=== PATIENT | female | born 1995 | race Caucasian/White ===

== ENCOUNTER 2018-03-21 15:56 | Emergency (ER) | payer SELFPAY ==
[~2018-03-21 15:56] MED LIST: ACEC5L PO; NO RTN MEDS
[2018-03-21] MEDS ORDERED: NS(*) 0.9% 1000 ML BAG 1,000 ML IV ONE (16:14)
--- NOTE | 2018-03-21 16:14 | ER Report ---
History and Physical Time Seen By MD: 16:14 Hx. of Stated Complaint: STOMACH PAIN FOR 4 WEEKS, NOW HAS SOUR BURPS AND NAUSEA. THINKS ITS HER GALL BLADDER HPI/ROS CHIEF COMPLAINT: Abdominal pain HISTORY OF PRESENT ILLNESS: 22-year-old female patient presents to emergency room with complaint of abdominal pain. Patient states that this been going on for the past 4 weeks. She states that she is notanything that seems to make it worse. She did eat some meats this afternoon which seemed to make the pain worse. She states pain seems to be more on the right side and radiates around to the middle of the stomach. She denies any fevers or chills. She denies any nausea, vomiting or diarrhea. Patient states she did take some ibuprofen for today which did not seem to help. She states she is not noticing anything that seems to make the pain better. She is concerned that her gallbladder may be the source of the pain as her mother had her gallbladder removed. REVIEW OF SYSTEMS: Respiratory: No cough, no dyspnea. Cardiovascular: No chest pain, no palpitations. Gastrointestinal: As noted above Musculoskeletal: No back pain. Allergies: Coded Allergies: No Known Drug Allergies (Unverified , 03/21/18) Home Meds Active Scripts Omeprazole (OMEPRAZOLE) 40 Mg Capsule., 40 MG PO QDAY, #30 CAP Prov:LETTY MONREAL 03/21/18 Past Medical/Surgical History Patient denies any pertinent past medical history. Patient has surgical history of ear surgery. Reviewed Nurses Notes: Yes Hx Smoking: No Smoking Status: Never Smoker Constitutional Vital Sign - Last 24 Hours 03/21/18 03/21/18 03/21/18 03/21/18 15:56 16:06 16:08 16:11 Temp 98.6 Pulse ??? 75 80 Resp 12 B/P (MAP) 123/67 123/67 (85) Pulse Ox 95 98 O2 Delivery Room Air 03/21/18 03/21/18 03/21/18 03/21/18 16:26 16:30 16:41 16:56 Pulse ??? 60 ??? B/P (MAP) 115/68 (84) Pulse Ox 99 03/21/18 03/21/18 03/21/18 03/21/18 17:00 17:11 17:26 17:30 Pulse 130 ??? B/P (MAP) 99/54 (69) 97/73 (81) Pulse Ox 99 03/21/18 03/21/18 03/21/18 17:41 17:57 18:01 Pulse ? B/P (MAP) 118/70 (86) Physical Exam General Appearance: The patient is alert, has no immediate need for airway protection and no current signs of toxicity. Respiratory: Chest is non tender, lungs are clear to auscultation. Cardiac: regular rate and rhythm Gastrointestinal: Abdomen is soft and tender in the right upper quadrant, no ma sses, bowel sounds normal. Musculoskeletal: Neck: Neck is supple and non tender. Extremities have full range of motion and are non tender. Skin: No rashes or lesions. DIFFERENTIAL DIAGNOSIS: After history and physical exam differential diagnosis was considered for abdominal pain including but not limited to appendicitis, cholecystitis, gastritis and urinary tract infection. Medical Decision Making Data Points Result Diagram: 03/21/18 1625 03/21/18 1625 Laboratory Hematology Test 03/21/18 16:01 03/21/18 16:25 Urine Color Annia Urine Clarity Clear Urine pH 5.0 pH (4.8-9.5) Urine Specific [place] 1.028 Urine Protein Negative mg/dL (NEGATIVE) Urine Glucose (UA) Negative mg/dL (NEGATIVE) Urine Ketones 20 mg/dL (NEGATIVE) Urine Blood Moderate (NEGATIVE) Urine Nitrite Negative (NEGATIVE) Urine Bilirubin Negative (NEGATIVE) Urine Urobilinogen 2.0 mg/dL (0.2-1.9) Urine Leukocyte Esterase Negative (NEGATIVE) Urine RBC 2 /HPF (0-2/HPF) Urine WBC 1 /HPF (0-5/HPF) Urine Squamous Epithelial Cells None /LPF (</=FEW) Urine Amorphous Crystals Few /HPF Urine Bacteria Negative /HPF (NONE-FEW) Urine Mucus Few /HPF (NONE-FEW) Red Blood Count 4.86 M/uL (4.17-5.56) Mean Corpuscular Volume 86.4 fL (80.0-96.0) Mean Corpuscular Hemoglobin 29.0 pg (26.0-33.0) Mean Corpuscular Hemoglobin Concent 33.5 g/dL (32.0-36.0) Red Cell Distribution Width 14.4 % (11.5-14.5) Mean Platelet Volume 8.0 fL (7.2-11.1) Neutrophils (%) (Auto) 68.8 % (39.4-72.5) Lymphocytes (%) (Auto) 21.3 % (17.6-49.6) Monocytes (%) (Auto) 7.4 % (4.1-12.4) Eosinophils (%) (Auto) 2.1 % (0.4-6.7) Basophils (%) (Auto) 0.4 % (0.3-1.4) Nucleated RBC Relative Count (auto) 0.0 /100WBC Neutrophils # (Auto) 8.0 K/uL (2.0-7.4) Lymphocytes # (Auto) 2.5 K/uL (1.3-3.6) Monocytes # (Auto) 0.9 K/uL (0.3-1.0) Eosinophils # (Auto) 0.2 K/uL (0.0-0.5) Basophils # (Auto) 0.0 K/uL (0.0-0.1) Nucleated RBC Absolute Count (auto) 0.00 K/uL Sodium Level 140 mmol/L (137-145) Potassium Level 3.6 mmol/L (3.5-5.0) Chloride Level 104 mmol/L (98-107) Carbon Dioxide Level 26 mmol/L (22-31) Blood Urea Nitrogen 9 mg/dl (7-18) Creatinine 0.70 mg/dl (0.52-1.04) Glomerular Filtration Rate Calc > 60.0 Random Glucose 77 mg/dl (75-110) Calcium Level 9.0 mg/dl (8.4-10.2) Total Bilirubin 0.5 mg/dl (0.2-1.3) Aspartate Amino Transf (AST/SGOT) 25 U/L (0-35) Alanine Aminotransferase (ALT/SGPT) 26 U/L (0-56) Alkaline Phosphatase 76 U/L (0-126) C-Reactive Protein < 0.5 mg/dl (<1.0) Total Protein 7.2 g/dl (6.3-8.2) Albumin 4.0 g/dl (3.5-5.0) Amylase Level 87 U/L (0-110) Lipase 61 U/L (23-300) Human Chorionic Gonadotropin, Qual Negative (NEGATIVE) Chemistry Test 03/21/18 16:01 03/21/18 16:25 Urine Color Annia Urine Clarity Clear Urine pH 5.0 pH (4.8-9.5) Urine Specific [place]man 1.028 Urine Protein Negative mg/dL (NEGATIVE) Urine Glucose (UA) Negative mg/dL (NEGATIVE) Urine Ketones 20 mg/dL (NEGATIVE) Urine Blood Moderate (NEGATIVE) Urine Nitrite Negative (NEGATIVE) Urine Bilirubin Negative (NEGATIVE) Urine Urobilinogen 2.0 mg/dL (0.2-1.9) Urine Leukocyte Esterase Negative (NEGATIVE) Urine RBC 2 /HPF (0-2/HPF) Urine WBC 1 /HPF (0-5/HPF) Urine Squamous Epithelial Cells None /LPF (</=FEW) Urine Amorphous Crystals Few /HPF Urine Bacteria Negative /HPF (NONE-FEW) Urine Mucus Few /HPF (NONE-FEW) White Blood Count 11.6 k/uL (4.5-11.0) Red Blood Count 4.86 M/uL (4.17-5.56) Hemoglobin 14.1 g/dL (12.0-16.0) Hematocrit 42.0 % (34.0-47.0) Mean Corpuscular Volume 86.4 fL (80.0-96.0) Mean Corpuscular Hemoglobin 29.0 pg (26.0-33.0) Mean Corpuscular Hemoglobin Concent 33.5 g/dL (32.0-36.0) Red Cell Distribution Width 14.4 % (11.5-14.5) Platelet Count 299 K/uL (150-450) Mean Platelet Volume 8.0 fL (7.2-11.1) Neutrophils (%) (Auto) 68.8 % (39.4-72.5) Lymphocytes (%) (Auto) 21.3 % (17.6-49.6) Monocytes (%) (Auto) 7.4 % (4.1-12.4) Eosinophils (%) (Auto) 2.1 % (0.4-6.7) Basophils (%) (Auto) 0.4 % (0.3-1.4) Nucleated RBC Relative Count (auto) 0.0 /100WBC Neutrophils # (Auto) 8.0 K/uL (2.0-7.4) Lymphocytes # (Auto) 2.5 K/uL (1.3-3.6) Monocytes # (Auto) 0.9 K/uL (0.3-1.0) Eosinophils # (Auto) 0.2 K/uL (0.0-0.5) Basophils # (Auto) 0.0 K/uL (0.0-0.1) Nucleated RBC Absolute Count (auto) 0.00 K/uL Glomerular Filtration Rate Calc > 60.0 Calcium Level 9.0 mg/dl (8.4-10.2) Total Bilirubin 0.5 mg/dl (0.2-1.3) Aspartate Amino Transf (AST/SGOT) 25 U/L (0-35) Alanine Aminotransferase (ALT/SGPT) 26 U/L (0-56) Alkaline Phosphatase 76 U/L (0-126) C-Reactive Protein < 0.5 mg/dl (<1.0) Total Protein 7.2 g/dl (6.3-8.2) Albumin 4.0 g/dl (3.5-5.0) Amylase Level 87 U/L (0-110) Lipase 61 U/L (23-300) Human Chorionic Gonadotropin, Qual Negative (NEGATIVE) Urinalysis Test 03/21/18 16:01 Urine Color Annia Urine Clarity Clear Urine pH 5.0 pH (4.8-9.5) Urine Specific [place] 1.028 Urine Protein Negative mg/dL (NEGATIVE) Urine Glucose (UA) Negative mg/dL (NEGATIVE) Urine Ketones 20 mg/dL (NEGATIVE) Urine Blood Moderate (NEGATIVE) Urine Nitrite Negative (NEGATIVE) Urine Bilirubin Negative (NEGATIVE) Urine Urobilinogen 2.0 mg/dL (0.2-1.9) Urine Leukocyte Esterase Negative (NEGATIVE) Urine RBC 2 /HPF (0-2/HPF) Urine WBC 1 /HPF (0-5/HPF) Urine Squamous Epithelial Cells None /LPF (</=FEW) Urine Amorphous Crystals Few /HPF Urine Bacteria Negative /HPF (NONE-FEW) Urine Mucus Few /HPF (NONE-FEW) EKG/Imaging Imaging GALLBLADDER HISTORY: RUQ abdominal pain COMPARISON: CT on pelvis September 04, 2015 FINDINGS: Gallbladder: Gallbladder appears partially contracted although the gallbladder wall does not appear thickened and there is no demonstration of gallbladder stones or sludge. Liver: Negative. Common duct: Normal, 1.2 mm diameter. Pancreas: Obscured by bowel gas Right kidney: Right kidney appears unremarkable measuring 9.5 cm in length Upper abdominal aorta and IVC: Patent. Ascites: None visualized. IMPRESSION: The gallbladder appears partially contracted which could be related to a recent meal although correlation with meal history needed. There is no demonstration of gallbladder stones or sludge or biliary ductal dilatation Report Dictated By: Susan Oglesby MD at 03/21/2018 5:27 PM Report E-Signed By: Susan Oglesby MD at 03/21/2018 5:30 PM ED Course/Re-evaluation ED Course Patient was medicated exam room, history and physical were obtained. Differen tial diagnoses were considered. On examination lungs are clear, heart is regular, abdomen is soft and tender in the right upper quadrant. A CBC, CMP, hCG, urinalysis, ultrasound of the gallbladder were done. The ultrasound was negative, the lab work was unremarkable. I discussed findings with patient and her mother. We will go ahead and discharge him home at this time. I believe that this could very well be some reflux which is causing the pain and that's why she seems to have it worse after eating. We will go ahead and put her on omeprazole for the next month. I would like her to follow-up Dr. Ware for further evaluation. I discussed this with the patient who verbalized understanding and agreement with plan. Decision to Disposition Date: Mar 21, 2018 Decision to Disposition Time: 17:56 Depart Departure Latest Vital Signs Vital Signs Date Time Temp Pulse Resp B/P (MAP) Pulse Ox O2 Delivery O2 Flow Rate FiO2 03/21/18 18:01 ??? 03/21/18 17:57 118/70 (86) 03/21/18 17:11 99 03/21/18 16:06 98.6 12 Room Air Impression: Primary Impression: RUQ abdominal pain Condition: Improved Disposition: HOME OR SELF-CARE Referrals: BOWEN LI MD (PCP) DIAMANTE WARE MD New Scripts Omeprazole (OMEPRAZOLE) 40 Mg Capsule. 40 MG PO QDAY, #30 CAP Prov: LETTY MONREAL IKER 03/21/18 Patient Instructions: Abdominal Pain (ED) Additional Instructions: Increase fluid intake. Get plenty of rest. Limit activity by pain. Try sticking with a low fat diet. Follow up with Dr. Ware, call tomorrow to make an appointment. Return to the ER if condition worsens. Take the Omeprazole (acid reducing medication) and see if that doesn't help with eating. LETTY MONREAL Mar 21, 2018 16:14
[2018-03-21 16:38] LABS: PLATELET COUNT, AUTOMATED 299 K/uL (150-450)
--- NOTE | 2018-03-21 17:34 | RADIOLOGY IMAGING REPORT ---
FACILITY: [facility] PATIENT NAME: Katelynn Gudino : 1995 MR: [id number] V: [id number] EXAM DATE: ORDERING PHYSICIAN: LETTY MONREAL TECHNOLOGIST: Location: [facility] [place] Patient: Katelynn Gudino : 1995 Visit/Account:[id number] Date of Sevice: 03/21/2018 GALLBLADDER HISTORY: RUQ abdominal pain COMPARISON: CT on pelvis September 04, 2015 FINDINGS: Gallbladder: Gallbladder appears partially contracted although the gallbladder wall does not appear t hickened and there is no demonstration of gallbladder stones or sludge. Liver: Negative. Common duct: Normal, 1.2 mm diameter. Pancreas: Obscured by bowel gas Right kidney: Right kidney appears unremarkable measuring 9.5 cm in length Upper abdominal aorta and IVC: Patent. Ascites: None visualized. IMPRESSION: The gallbladder appears partially contracted which could be related to a recent meal although correla tion with meal history needed. There is no demonstration of gallbladder stones or sludge or biliary ductal dilatation Report Dictated By: Susan Oglesby MD at 03/21/2018 5:27 PM Report E-Signed By: Susan Oglesby MD at 03/21/2018 5:30 PM WSN:[email or web address]
[2018-03-21] MEDS ORDERED: OMEP40CA48 PO (17:54)
[2018-03-21 17:57] VITALS: BP 118/70
== END 2018-03-21 18:05 | disposition home or self-care (01) ==
LOC: ER 16:05
DX: R10.11 Right upper quadrant pain (principal)
CPT/HCPCS: 81001; 82150; 83690; 84703; 85025; 86140; 96360; 99284; J7030; 76705; 82040; 82247; 82310; 82374; 82435; 82565; 82947; 84075; 84132; 84155; 84295; 84450; 84460; 84520